=== PATIENT | female | born 1950 ===

== ENCOUNTER 2016-10-30 13:59 | Outpatient (CLI) | payer MEDICARE ==
--- NOTE | 2016-11-11 13:19 | Mammography Report ---
DIGITAL SCREENING MAMMOGRAM: 10/30/2016 CLINICAL INDICATION: A 66-year-old, for screening. COMPARISON: The patient reports having had previous mammograms at [facility] in [facility], but no records of the patient exist at that facility. If records in your office indicate wher e the patient has had previous mammograms, we would be happy to try to obtain them for direct compari son. Otherwise, this will serve as a new baseline. TECHNIQUE: Routine CC and MLO projections were obtained of the breasts. FINDINGS: The breasts demonstrate scattered fibroglandular densities bilaterally. Coarse, typically benign calcifications are present. In the right upper outer central breast, there is a possible obscu red nodule. Further evaluation with spot compression views and possible ultrasound is recommended. IMPRESSION: INCOMPLETE EXAMINATION. RECOMMENDATION: ADDITIONAL EVALUATION OF THE RIGHT BREAST ABOVE. BIRADS CATEGORY 0-INCOMPLETE. STANDARD QUALIFYING STATEMENTS 1. This examination was reviewed with the aid of Computer-Aided Detection (CAD). 2. A negative or benign imaging report should not delay biopsy if clinically suspicious findings are present. Consider surgical consultation if warranted. More than 5% of cancers are not identified by i maging. 3. Dense breasts may obscure an underlying neoplasm. JOB #: [id number] JOB #:[id number]
== END 2016-10-30 14:00 | disposition home or self-care (01) ==
LOC: DI.N 13:59
PROVIDERS: ATTEND Specialist
DX: Z12.31 Encounter for screening mammogram for malignant neoplasm of breast (principal); R92.8 Other abnormal and inconclusive findings on diagnostic imaging of breast
CPT/HCPCS: 77067